=== PATIENT | female | born 1990 | race Hispanic/Latino ===

== ENCOUNTER 2017-10-30 13:53 | Observation (INO) | payer OTHER, MEDICARE ==
[~2017-10-30] VITALS: Ht 149.9 cm; Wt 58.1 kg
[~2017-10-30 13:53] MED LIST: INSU100I15 SQ; INSU100V12 SQ; LEVO112T7 PO
[2017-10-30 15:17] LABS: BASOPHILS % (AUTO) 0.3 % (0.0-5.0); LYMPHOCYTES % (AUTO) 2.6 % (21.0-51.0); MEAN CORPUSCULAR HEMOGLOBIN 31.5 pg (27.0-33.0); MEAN CORPUSCULAR HGB CONC 33.5 g/dL (32.0-36.0); MEAN CORPUSCULAR VOLUME 94.1 fL (79-99); MONOCYTES % (AUTO) 0.8 % (3.0-13.0); NEUTROPHILS % (AUTO) 96.3 % (40.0-77.0); PLATELET COUNT (AUTO) 331 K/uL (130-400); RED BLOOD CELL COUNT(AUTO) 4.67 MIL/uL (4.00-5.50); RED CELL DISTRIBUTION WIDTH 13.3 % (11.0-15.5); WHITE BLOOD COUNT (AUTO) 18.5 K/uL (4.8-10.8)
[2017-10-30 15:28] LABS: CREATININE 0.9 mg/dL (0.5-1.5); POTASSIUM 4.3 mmol/L (3.5-5.1)
[2017-10-30 15:33] LABS: BILIRUBIN,TOTAL 0.8 mg/dL (0.2-1.0); TOTAL PROTEIN, SERUM 8.4 g/dL (6.0-8.3)
[2017-10-30] MEDS ORDERED: CLINDAMYCIN 600 MG/D5% WATER 50 ML IV ONE (15:42)
[2017-10-30] MEDS ORDERED: SODIUM CHLORIDE 0.9% 1000ML 2,000 ML IV ONE (15:42)
[2017-10-30] MEDS ORDERED: INSULIN HUMULIN R 100 UNIT/ML 3ML ONE ×3 (15:43→21:51)
[2017-10-30 15:51] LABS: APPEARANCE,URINE Clear (CLEAR); BILIRUBIN,URINE Negative (NEGATIVE); COLOR,URINE Yellow (YELLOW); GLUCOSE, URINE (UA) >=1000 mg/dL (NEGATIVE); KETONES,URINE >=160 mg/dL (NEGATIVE); LEUKOCYTE ESTERASE ,URINE Negative (NEGATIVE); NITRATE,URINE Negative (NEGATIVE); OCCULT BLOOD,URINE Trace (NEGATIVE); PROTEIN,URINE Trace (NEGATIVE); UROBILINOGEN,URINE 0.2 mg/dL (0.2-1.0)
[2017-10-30 15:59] LABS: ABG OXYGEN SATURATION 23.1 % (95.0-99.0); BASE EXCESS,VENOUS BLOOD GAS -9.2 (-2.0-3.0); HCO3,VENOUS BLOOD GAS 17.5 (21.0-28.0); PCO2,VENOUS BLOOD GAS 41 (32-45)
[2017-10-30 15:59] LABS: AMPHET/METH SCREEN,URINE NEGATIVE (NEGATIVE); BARBITURATE SCREEN, URINE NEGATIVE (NEGATIVE); BENZODIAZEPINES SCREEN,URINE NEGATIVE (NEGATIVE); CANNABINOID SCREEN,URINE POSITIVE (NEGATIVE); COCAINE SCREEN,URINE NEGATIVE (NEGATIVE); OPIATE SCREEN,URINE NEGATIVE (NEGATIVE); PHENCYCLIDINE SCREEN,URINE NEGATIVE (NEGATIVE)
[2017-10-30 16:13] LABS: HCG,QUAL RESULT NEGATIVE (NEGATIVE)
[2017-10-30 16:20] LABS: WBC,URINE 0-1 /HPF (0-1)
[2017-10-30 16:21] LABS: BACTERIA,URINE Few /HPF (None Seen); SQUAMOUS EPITHELIAL CELL,UR Rare /LPF (0-2)
[2017-10-30 18:57] LABS: ABG OXYGEN SATURATION 43.5 % (95.0-99.0); HCO3,VENOUS BLOOD GAS 14.3 (21.0-28.0); PCO2,VENOUS BLOOD GAS 34 (32-45); PH,VENOUS BLOOD GAS 7.239 (7.350-7.450)
[2017-10-30 19:16] LABS: CREATININE 0.7 mg/dL (0.5-1.5); POTASSIUM 4.1 mmol/L (3.5-5.1)
[2017-10-30] MEDS ORDERED: VANCOMYCIN PROTOCOL PER PHARMACY IV SCH (20:15)
[2017-10-30] MEDS: SODIUM CHLORIDE 0.9% 1000ML 1,000 ML IV SCH (20:15)
[2017-10-30] MEDS ORDERED: DIPHENHYDRAMINE HCL 25 MG CAPSULE PO PRN (20:15)
[2017-10-30] MEDS ORDERED: COMPOUND IV REFRIGERATED 1 EACH IVSOLN MISC PRN (20:15)
[2017-10-30] MEDS ORDERED: DiphenhydrAMINE HCL 50 MG/ML VIAL IVP PRN (20:15)
[2017-10-30] MEDS ORDERED: ACETAMINOPHEN 325 MG TAB PO PRN ×2 (20:15)
[2017-10-30] MEDS ORDERED: DEXTROSE 50%-WATER 50 ML DISP.SYRIN IV PRN (20:15)
[2017-10-30] MEDS ORDERED: GLUCAGON 1MG KIT 1 MG ML IM PRN (20:15)
[2017-10-30] MEDS ORDERED: VANCOMYCIN 0.75 GM in N.S. 250 ML IV SCH (20:30)
[2017-10-30] MEDS: INSULIN R PO SS2 SQ SCH (21:00)
[2017-10-30] MEDS ORDERED: INSU100I24 SQ (23:14)
[2017-10-30] MEDS ORDERED: ALPR0.5T PO (23:14)
[2017-10-30 23:17] VITALS: BP 112/77
[2017-10-31 04:00] VITALS: BP 108/59
[2017-10-31] MEDS: VANCOMYCIN 500MG+NS 100ML 100 ML IV SCH ×3 (04:21→20:53)
[2017-10-31 05:42] LABS: MEAN CORPUSCULAR HEMOGLOBIN 32.1 pg (27.0-33.0); MEAN CORPUSCULAR HGB CONC 34.1 g/dL (32.0-36.0); MEAN CORPUSCULAR VOLUME 94.1 fL (79-99); PLATELET COUNT (AUTO) 319 K/uL (130-400); RED BLOOD CELL COUNT(AUTO) 4.04 MIL/uL (4.00-5.50); RED CELL DISTRIBUTION WIDTH 13.4 % (11.0-15.5)
[2017-10-31 06:08] LABS: BILIRUBIN,TOTAL 1.1 mg/dL (0.2-1.0); CREATININE 0.5 mg/dL (0.5-1.5); MAGNESIUM 1.6 mg/dL (1.80-2.40); POTASSIUM 3.6 mmol/L (3.5-5.1); TOTAL PROTEIN, SERUM 6.4 g/dL (6.0-8.3)
[2017-10-31] MEDS: INSULIN R PO SS2 SQ SCH ×4 (06:16→20:55)
[2017-10-31] MEDS ORDERED: FLU VACC QS2017-18 36MOS UP/PF 60 MCG/0.5 ML ML IM ONE (06:30)
[2017-10-31 08:00] VITALS: BP 104/72
[2017-10-31] MEDS ORDERED: ONDANSETRON HCL 4 MG/2 ML VIAL IVP ONE (08:13)
[2017-10-31] MEDS: ONDANSETRON HCL 4 MG/2 ML VIAL IVP PRN (08:15)
[2017-10-31] MEDS: ALPRAZOLAM 0.5 MG TABLET PO PRN ×2 (08:22→15:23)
[2017-10-31] MEDS ORDERED: MAGNESIUM 4GM PREMIX 100ML 100 ML IV SCH (08:30)
[2017-10-31] MEDS: SODIUM CHLORIDE 0.9% 1000ML 1,000 ML IV SCH (09:35)
[2017-10-31] MEDS ORDERED: DIATR MEGLU/DIATRIZOATE SODIUM 30 ML BOTTLE PO ONE (10:37)
[2017-10-31] MEDS ORDERED: POTASSIUM CHLORIDE 20MEQ/100ML 100 ML IV PRN (10:45)
[2017-10-31] MEDS ORDERED: POTASSIUM CHLORIDE 10% ELIXIR 20 MEQ/15 ML UDCUP PO PRN (10:45)
[2017-10-31] MEDS ORDERED: LIDOCAINE HCL-MPF 1% 2ML VIAL IVP PRN (10:45)
[2017-10-31] MEDS: LEVOFLOXACIN 500 MG/D5W 100 ML 100 ML IV SCH (10:50)
[2017-10-31] MEDS ORDERED: COMPOUND IV REFRIGERATED 1 EACH IVSOLN MISC PRN (11:30)
[2017-10-31 12:00] VITALS: BP 133/90
[2017-10-31] MEDS ORDERED: IOPAMIDOL-370 100 ML VIAL IV ONE (14:30)
[2017-10-31 15:49] VITALS: BP 108/80
[2017-10-31] MEDS: INSULIN LISPRO 100 UNIT/ML 3ML SQ SCH (17:00)
[2017-10-31 20:11] VITALS: BP 119/76
[2017-10-31] MEDS: MORPHINE SULFATE 2 MG/ML 1ML SYG IVP PRN (20:57)
[2017-10-31 23:39] VITALS: BP 108/71
[2017-11-01] MEDS: ALPRAZOLAM 0.5 MG TABLET PO PRN ×2 (01:14→08:49)
[2017-11-01 02:49] LABS: HEMATOCRIT 39.1 % (36-48); MEAN CORPUSCULAR HEMOGLOBIN 31.9 pg (27.0-33.0); MEAN CORPUSCULAR HGB CONC 34.2 g/dL (32.0-36.0); MEAN CORPUSCULAR VOLUME 93.4 fL (79-99); PLATELET COUNT (AUTO) 281 K/uL (130-400); RED BLOOD CELL COUNT(AUTO) 4.18 MIL/uL (4.00-5.50); RED CELL DISTRIBUTION WIDTH 13.4 % (11.0-15.5); WHITE BLOOD COUNT (AUTO) 13.6 K/uL (4.8-10.8)
[2017-11-01 02:58] LABS: CREATININE 0.6 mg/dL (0.5-1.5); POTASSIUM 3.4 mmol/L (3.5-5.1)
[2017-11-01 04:21] VITALS: BP 101/69
[2017-11-01] MEDS: VANCOMYCIN 500MG+NS 100ML 100 ML IV SCH (05:14)
[2017-11-01 07:00] VITALS: BP 103/64
[2017-11-01] MEDS: INSULIN LISPRO 100 UNIT/ML 3ML SQ SCH ×3 (07:20→16:22)
[2017-11-01] MEDS: INSULIN R PO SS2 SQ SCH ×3 (07:21→16:21)
[2017-11-01] MEDS ORDERED: LEVOTHYROXINE 112 MCG TABLET PO SCH (07:30)
[2017-11-01] MEDS: ONDANSETRON HCL 4 MG/2 ML VIAL IVP PRN (08:39)
[2017-11-01] MEDS: POTASSIUM CHLORIDE 20 MEQ ERTAB PO PRN ×2 (08:51→10:34)
[2017-11-01] MEDS: SODIUM CHLORIDE 0.9% 1000ML 1,000 ML IV SCH ×2 (08:52→12:47)
[2017-11-01] MEDS ORDERED: VANCOMYCIN 1GM+NS 250ML IV SCH (09:00)
[2017-11-01] MEDS: LEVOFLOXACIN 500 MG/D5W 100 ML 100 ML IV SCH (10:56)
[2017-11-01 11:00] VITALS: BP 95/57
[2017-11-01] MEDS ORDERED: Insulin Degludec (Tresiba Flextouch U-100) PO SCH (12:00)
[2017-11-01] MEDS: MORPHINE SULFATE 2 MG/ML 1ML SYG IVP PRN (13:01)
[2017-11-01 16:00] VITALS: BP 107/57
== END 2017-11-01 17:45 | disposition home or self-care (01) ==
LOC: EDH 13:53 → EDHIP 19:40 → 3CH 22:25
PROVIDERS: ADMIT Internal Medicine Infectious Disease; ATTEND Internal Medicine Infectious Disease
DX: N76.4 Abscess of vulva (principal); D72.829 Elevated white blood cell count, unspecified; E11.65 Type 2 diabetes mellitus with hyperglycemia; E87.2 Acidosis; E83.42 Hypomagnesemia; E87.6 Hypokalemia; E03.9 Hypothyroidism, unspecified; F32.9 Major depressive disorder, single episode, unspecified; F41.9 Anxiety disorder, unspecified; Z83.3 Family history of diabetes mellitus; Z23 Encounter for immunization
CPT/HCPCS: 36415 ×3; 36600 ×2; 74178; 80048 ×2; 80053 ×2; 80202; 80305; 81001; 81025; 82009; 82803 ×2; 82947; 82948 ×12; 83735 ×2; 85025; 85027 ×2; 87040 ×2; 90471; 96365; 96366 ×2; 96367; 96368; 96375 ×2; 96376 ×2; 99285; A4510; G0378 ×46; J1815 ×5; J1956 ×2; J2405 ×2; J3370 ×4; J3475; J3490; J7030 ×4; Q2038; Q9963; Q9967

== ENCOUNTER 2018-07-31 18:53 | Emergency (ER) | payer OTHER, MEDICARE ==
[~2018-07-31 18:53] MED LIST changes: +ALPR0.5T PO; +INSU100I24 SQ
[2018-07-31] MEDS ORDERED: ONDANSETRON HCL 4 MG/2 ML VIAL ONE (19:33)
[2018-07-31 20:00] LABS: BASOPHILS % (AUTO) 0.3 % (0.0-5.0); EOSINOPHILS % (AUTO) 0.4 % (0.0-8.0); HEMATOCRIT 44.5 % (36-48); LYMPHOCYTES % (AUTO) 9.1 % (21.0-51.0); MEAN CORPUSCULAR HEMOGLOBIN 32.7 pg (27.0-33.0); MEAN CORPUSCULAR HGB CONC 34.6 g/dL (32.0-36.0); MEAN CORPUSCULAR VOLUME 94.4 fL (79-99); MONOCYTES % (AUTO) 3.2 % (3.0-13.0); PLATELET COUNT (AUTO) 336 K/uL (130-400); RED BLOOD CELL COUNT(AUTO) 4.71 MIL/uL (4.00-5.50); RED CELL DISTRIBUTION WIDTH 12.5 % (11.0-15.5); WHITE BLOOD COUNT (AUTO) 14.3 K/uL (4.8-10.8)
[2018-07-31 20:02] LABS: APPEARANCE,URINE Cloudy (CLEAR); BILIRUBIN,URINE Negative (NEGATIVE); COLOR,URINE Yellow (YELLOW); GLUCOSE, URINE (UA) >=1000 mg/dL (NEGATIVE); KETONES,URINE 15 mg/dL (NEGATIVE); LEUKOCYTE ESTERASE ,URINE Negative (NEGATIVE); NITRATE,URINE Negative (NEGATIVE); OCCULT BLOOD,URINE Small (NEGATIVE); PH,URINE 5.5 (5.0-8.0); PROTEIN,URINE POS 2+ (NEGATIVE)
[2018-07-31 20:09] LABS: AMPHET/METH SCREEN,URINE NEGATIVE (NEGATIVE); BARBITURATE SCREEN, URINE NEGATIVE (NEGATIVE); BENZODIAZEPINES SCREEN,URINE POSITIVE (NEGATIVE); CANNABINOID SCREEN,URINE POSITIVE (NEGATIVE); COCAINE SCREEN,URINE NEGATIVE (NEGATIVE); OPIATE SCREEN,URINE NEGATIVE (NEGATIVE); PHENCYCLIDINE SCREEN,URINE NEGATIVE (NEGATIVE)
[2018-07-31 20:16] LABS: CREATININE 0.7 mg/dL (0.5-1.5); POTASSIUM 4.6 mmol/L (3.5-5.1)
[2018-07-31 20:18] LABS: ACETONE,BLOOD NEGATIVE (NEGATIVE)
[2018-07-31 20:28] LABS: BACTERIA,URINE Few /HPF (None Seen); RBC,URINE 0-1 /HPF (0-1); WBC,URINE None Seen /HPF (0-1)
[2018-07-31 20:29] LABS: ALANINE AMINOTRANSFERASE 15 U/L (12-78); ASPARTATE AMINOTRANSFERASE 26 U/L (10-37); BILIRUBIN,DIRECT 0.1 mg/dL (0.0-0.3); BILIRUBIN,TOTAL 0.9 mg/dL (0.2-1.0); HCG,QUANTITATIVE 0 mIU/mL (0-5); SQUAMOUS EPITHELIAL CELL,UR 0-2 /HPF (0-2); TOTAL PROTEIN, SERUM 8.8 g/dL (6.0-8.3)
[2018-07-31] MEDS ORDERED: INSULIN HUMULIN R 100 UNIT/ML 3ML ONE (21:05)
== END 2018-07-31 21:29 | disposition home or self-care (01) ==
LOC: EDH 18:53
DX: E11.65 Type 2 diabetes mellitus with hyperglycemia (principal); R11.2 Nausea with vomiting, unspecified; E07.9 Disorder of thyroid, unspecified; Z79.4 Long term (current) use of insulin; Z72.0 Tobacco use
CPT/HCPCS: 36415; 80048; 80076; 80305; 81001; 82009; 82948; 83690; 84702; 85025; 96361; 96374; 96375; 99284; J1815; J2405

== ENCOUNTER 2018-10-11 16:06 | Emergency (ER) | payer OTHER, MEDICARE | END 2018-10-11 16:28 | disposition home or self-care (01) | LOC: EDH 16:06 | DX: S92.424A Nondisplaced fracture of distal phalanx of right great toe, initial encounter for closed fracture (principal); E11.9 Type 2 diabetes mellitus without complications; F32.9 Major depressive disorder, single episode, unspecified; E07.9 Disorder of thyroid, unspecified; F41.9 Anxiety disorder, unspecified; Z88.0 Allergy status to penicillin; Z79.4 Long term (current) use of insulin; X58.XXXA Exposure to other specified factors, initial encounter; Y93.89 Activity, other specified; Y92.89 Other specified places as the place of occurrence of the external cause; Y99.8 Other external cause status | CPT/HCPCS: 73660 ==

== ENCOUNTER 2019-08-10 15:01 | Emergency (ER) | payer OTHER, MEDICARE | END 2019-08-10 15:50 | disposition home or self-care (01) | LOC: EDH 15:01 | DX: N63.0 Unspecified lump in unspecified breast (principal) | CPT/HCPCS: 99281 ==

== ENCOUNTER 2019-08-29 09:51 | Inpatient (IN) | payer OTHER, MEDICARE ==
[~2019-08-29] VITALS: Ht 149.9 cm; Wt 60.8 kg
[2019-08-29] MEDS ORDERED: CLINDAMYCIN 600 MG/D5% WATER 50 ML IV ONE (10:50)
[2019-08-29 10:51] LABS: BASOPHILS % (AUTO) 0.3 % (0.0-5.0); EOSINOPHILS % (AUTO) 0.9 % (0.0-8.0); HEMATOCRIT 43.3 % (36-48); LYMPHOCYTES % (AUTO) 7.6 % (21.0-51.0); MEAN CORPUSCULAR HEMOGLOBIN 31.6 pg (27.0-33.0); MEAN CORPUSCULAR HGB CONC 34.3 g/dL (32.0-36.0); MEAN CORPUSCULAR VOLUME 92.1 fL (79-99); MONOCYTES % (AUTO) 4.4 % (3.0-13.0); NEUTROPHILS % (AUTO) 86.8 % (40.0-77.0); PLATELET COUNT (AUTO) 366 K/uL (130-400); RED CELL DISTRIBUTION WIDTH 12.4 % (11.0-15.5)
[2019-08-29 11:04] LABS: APPEARANCE,URINE Clear (CLEAR); BILIRUBIN,URINE Negative (NEGATIVE); COLOR,URINE Yellow (YELLOW); GLUCOSE, URINE (UA) 500 mg/dL (NEGATIVE); KETONES,URINE >=80 mg/dL (NEGATIVE); LEUKOCYTE ESTERASE ,URINE Negative (NEGATIVE); NITRATE,URINE Negative (NEGATIVE); OCCULT BLOOD,URINE Large (NEGATIVE); PH,URINE 5.5 (5.0-8.0); PROTEIN,URINE POS 1+ mg/dL (NEGATIVE)
[2019-08-29 11:04] LABS: CREATININE 0.7 mg/dL (0.5-1.5); POTASSIUM 4.3 mmol/L (3.5-5.1)
[2019-08-29 11:10] LABS: HCG,QUAL RESULT NEGATIVE (NEGATIVE)
[2019-08-29 11:26] LABS: BACTERIA,URINE Few /HPF (None Seen); WBC,URINE 0-1 /HPF (0-1)
[2019-08-29] MEDS ORDERED: ONDANSETRON HCL 4 MG/2 ML VIAL ONE (12:27)
[2019-08-29] MEDS ORDERED: MORPHINE SULFATE 4 MG/1ML SYG ONE (12:28)
[2019-08-29] MEDS ORDERED: KETOROLAC TROMETHAMINE 30MG/ML ONE (12:28)
[2019-08-29] MEDS ORDERED: SODIUM CHLORIDE 0.9% 1000ML 1,000 ML IV ONE (12:28)
[2019-08-29 15:00] VITALS: BP 143/81
[2019-08-29] MEDS ORDERED: MORPHINE SULFATE 2 MG/ML 1ML SYG IM PRN (15:45)
[2019-08-29] MEDS ORDERED: ACETAMINOPHEN-CODEINE 300/30MG TAB PO PRN ×2 (15:45)
[2019-08-29] MEDS ORDERED: VANCOMYCIN PROTOCOL PER PHARMACY IV SCH (15:45)
[2019-08-29] MEDS: VANCOMYCIN 1GM+NS 250ML 250 ML IV SCH (17:07)
[2019-08-29] MEDS ORDERED: DEXTROSE 50%-WATER 50 ML DISP.SYRIN IV PRN (18:00)
[2019-08-29] MEDS ORDERED: GLUCAGON 1MG KIT 1 MG ML IM PRN (18:00)
[2019-08-29 19:00] VITALS: BP 140/79
[2019-08-29] MEDS ORDERED: INSULIN HUMULIN R 100 UNIT/ML 3ML SQ SCH (21:00)
[2019-08-29] MEDS ORDERED: CHOL500050 PO ×2 (21:51)
--- NOTE | 2019-08-29 21:59 | NUR ---
NOTE CONTACTED DR. GREENBERG REGARDING PATIENT'S CONCERNS FOR INSULIN AND TO ASK ABOUT RESTARTING HER OWN MEDICATION REGIMEN. ALSO CLARIFIED ROUTE FOR MORPHINE AND UPDATED ORDER. RECEIVED ALSO ORDERS FOR CONSULT HOSPITALIST TO SEE ABOUT DIABETES/MEDICAL MANAGEMENT. PAGED HOSPITALIST ONCALL. UPDATED PATIENT.
--- NOTE | 2019-08-29 22:24 | NUR ---
NOTE NOTIFIED Benson ALEXANDER RESIDENT CAREGIVER AND CAME TO UNIT TO SEE PATIENT AND REVIEW CHART.
[2019-08-29] MEDS ORDERED: MORPHINE SULFATE 2 MG/ML 1ML SYG IV PRN (22:45)
--- NOTE | 2019-08-29 22:46 | NUR ---
NOTE Benson ALEXANDER SHIP CAPTAIN AFTER SEEING PATIENT. RESUMED HOME MEDICATIONS AND SAID PATIENT CAN USE HER OWN INSULIN IF THE PHARMACY DOES NOT HAVE IT AVAILABLE. UPDATED PATIENT OF NEW ORDERS. SAYS SHE WILL USE HER OWN TONIGHT.
[2019-08-30] VITALS (25 sets, daily range): BP systolic 92–131; BP diastolic 51–87
[2019-08-30] MEDS: SODIUM CHLORIDE 0.9% 1000ML 1,000 ML IV SCH ×3 (03:11→23:40)
[2019-08-30 05:18] LABS: BASOPHILS % (AUTO) 0.8 % (0.0-5.0); EOSINOPHILS % (AUTO) 2.7 % (0.0-8.0); HEMATOCRIT 37.3 % (36-48); LYMPHOCYTES % (AUTO) 29.3 % (21.0-51.0); MEAN CORPUSCULAR HEMOGLOBIN 31.8 pg (27.0-33.0); MEAN CORPUSCULAR HGB CONC 34.8 g/dL (32.0-36.0); MEAN CORPUSCULAR VOLUME 91.2 fL (79-99); MONOCYTES % (AUTO) 7.8 % (3.0-13.0); NEUTROPHILS % (AUTO) 59.4 % (40.0-77.0); PLATELET COUNT (AUTO) 320 K/uL (130-400); RED BLOOD CELL COUNT(AUTO) 4.09 MIL/uL (4.00-5.50); RED CELL DISTRIBUTION WIDTH 12.6 % (11.0-15.5); WHITE BLOOD COUNT (AUTO) 7.6 K/uL (4.8-10.8)
[2019-08-30 05:33] LABS: ALBUMIN 2.9 g/dL (3.5-5.0); BILIRUBIN,TOTAL 0.6 mg/dL (0.2-1.0); CREATININE 0.6 mg/dL (0.5-1.5); INR 0.93 (0.85-1.15); PARTIAL THROMBOPLASTIN TIME 25.8 SEC (26.3-35.5); POTASSIUM 4.2 mmol/L (3.5-5.1); PROTHROMBIN TIME 9.8 SEC (9.6-11.6); TOTAL PROTEIN, SERUM 6.5 g/dL (6.0-8.3)
[2019-08-30 05:34] LABS: HEMOGLOBIN A1C 11.1 % (4.0-6.0)
--- NOTE | 2019-08-30 06:30 | NUR ---
NOTE PATIENT SAYS SHE WILL NOT USE INSULIN SINCE SHE IS FASTING NOW. HER GLUCOSE WAS 244 IN LAB RESULTS.
[2019-08-30] MEDS ORDERED: LEVOTHYROXINE 112 MCG TABLET PO SCH (07:30)
[2019-08-30] MEDS: INSULIN LISPRO 100 UNIT/ML 3ML SQ SCH ×4 (07:30→21:36)
[2019-08-30] MEDS: LEVOTHYROXINE 150 MCG TABLET PO SCH (07:30)
[2019-08-30] MEDS ORDERED: ONDANSETRON HCL 4 MG/2 ML VIAL IVP PRN (08:30)
[2019-08-30] MEDS ORDERED: KETOROLAC TROMETHAMINE 15MG/ML IV PRN (09:00)
--- NOTE | 2019-08-30 09:00 | NUR ---
LEFT BREAST ABSCESS Addendum: 08/30/19 at 1356 by SUZY MAN RN RN Amended: Links added.
[2019-08-30] MEDS: VANCOMYCIN 1GM+NS 250ML 250 ML IV SCH ×2 (09:03→21:26)
--- NOTE | 2019-08-30 09:30 | NUR ---
INITIAL MET W PT AND SPOUSE , SUZANNE WHO WILL PROVIDE TRANSPORT PT IS INDP OF ADLS, NO DME, DRIVES, HAS HAD DMI SINCE SHE WAS AOBUT 11, AND HAS A LARGE REDDEDN ABCESS TO BREAST WHICH HAS NOT BEEN RESPONSIVE TO PO ABX. DCP IS HOME, STATES WILL DO WHATEVER DRESSING CHANGES NEED TO BE DONE. SPOUSE VERBALIZED AGREEMENT Addendum: 08/31/19 at 1832 by STEPHON DELVALLE RN CM Amended: Links added.
[2019-08-30] MEDS: ALPRAZOLAM 0.5 MG TABLET PO PRN ×2 (10:37→23:39)
--- NOTE | 2019-08-30 12:03 | NUR ---
PATIENT TAKING OFF UNIT VIA BED TO OR HOLDING FOR I&D OF LEFT BREAST ABSCESS
[2019-08-30] MEDS ORDERED: MEPERIDINE-PF 25 MG/ML SYG ONE ×2 (12:18→14:18)
[2019-08-30] MEDS ORDERED: MIDAZOLAM HCL 1 MG/ML 2ML VIAL ONE ×2 (13:17→14:04)
[2019-08-30] MEDS ORDERED: LIDOCAINE PF 2% 5ML ABBOJECT ONE (13:17)
[2019-08-30] MEDS ORDERED: DEXAMETHASONE SOD PHOSPHATE 10MG/ML 1ML VIAL ONE (13:17)
[2019-08-30] MEDS ORDERED: FENTANYL CITRATE PF 50 MCG/1 ML 2ML VIAL ONE (13:18)
[2019-08-30] MEDS ORDERED: PROPOFOL 10 MG/ML 20ML VIAL IV ONE ×2 (13:18→13:26)
[2019-08-30] MEDS ORDERED: ONDANSETRON HCL 4 MG/2 ML VIAL ONE (13:18)
[2019-08-30] MEDS ORDERED: MORPHINE SULFATE 4 MG/1ML SYG ONE (13:57)
[2019-08-30] MEDS ORDERED: KETOROLAC TROMETHAMINE 30MG/ML ONE (14:45)
--- NOTE | 2019-08-30 15:00 | NUR ---
S/P I&D WITH PACKING OF LEFT BREAST, DRESSING DRY AND INTACT VS B/P 108/67 P 81 R 16 T 97.6 MEDICATED 3 TIMES WHILE IN RECOVER LAST MEDICATION TORADOL 30 MG AT 1448, PATIENT O2 SATS 97 % ON ROOM AIR , DENIES PAIN AT THIS TIME, CONTINUE TO MONITOR.
[2019-08-30] MEDS: MORPHINE SULFATE 2 MG/ML 1ML SYG IV PRN (21:27)
[2019-08-30] MEDS ORDERED: INSULIN GLARGINE 100 UNITS/ML 10 ML VIAL SQ SCH (22:00)
[2019-08-31] VITALS (21 sets, daily range): BP systolic 114–133; BP diastolic 64–86
[2019-08-31] MEDS: MORPHINE SULFATE 2 MG/ML 1ML SYG IV PRN ×2 (04:13→09:28)
[2019-08-31] MEDS: INSULIN LISPRO 100 UNIT/ML 3ML SQ SCH ×3 (06:18→16:30)
[2019-08-31] MEDS: LEVOTHYROXINE 150 MCG TABLET PO SCH (06:31)
--- NOTE | 2019-08-31 07:30 | NUR ---
note AAOX3. DENIES PAIN AT THIS TIME. NO DISTRESS OR SOB. BBS CLEAR. BOWEL SOUNDS PRESENT VOIDS NO PROBLEM. SHE IS NPO FOR SECOND I&D TO LEFT BREAST ABSCESS TO BE PERFORMED BY DR GREENBERG. AT HER SIDE. INSTRUCTED HER NOT TO EAT BREAKFAST THAT WAS DELIVERED TO HER ROOM FOR SHE IS NPO OF NOW.
[2019-08-31] MEDS: SODIUM CHLORIDE 0.9% 1000ML 1,000 ML IV SCH (07:46)
[2019-08-31] MEDS: VANCOMYCIN 1GM+NS 250ML 250 ML IV SCH (09:00)
[2019-08-31] MEDS ORDERED: VANCOMYCIN 1.75 GM in SODIUM CHLORIDE 0.9% 250 ML IV SCH (10:30)
[2019-08-31] MEDS ORDERED: VANCOMYCIN HCL 1 GM VIAL ONE (12:23)
[2019-08-31] MEDS ORDERED: CEFAZOLIN SODIUM 1 GM VIAL ONE (12:23)
--- NOTE | 2019-08-31 12:25 | NUR ---
NOTE TRANSFERRED TO SURGERY AT THIS TIME. STABLE UPON LEAVING.
[2019-08-31] MEDS ORDERED: MIDAZOLAM HCL 1 MG/ML 2ML VIAL ONE (12:46)
[2019-08-31] MEDS ORDERED: LIDOCAINE PF 2% 5ML ABBOJECT ONE (12:46)
[2019-08-31] MEDS ORDERED: PROPOFOL 10 MG/ML 20ML VIAL IV ONE (12:46)
[2019-08-31] MEDS ORDERED: FENTANYL CITRATE PF 50 MCG/1 ML 2ML VIAL ONE ×2 (12:46→13:05)
[2019-08-31] MEDS ORDERED: DEXAMETHASONE SOD PHOSPHATE 10MG/ML 1ML VIAL ONE (13:00)
[2019-08-31] MEDS ORDERED: ONDANSETRON HCL 4 MG/2 ML VIAL ONE (13:01)
[2019-08-31] MEDS ORDERED: KETOROLAC TROMETHAMINE 30MG/ML ONE (13:05)
[2019-08-31] MEDS ORDERED: MEPERIDINE-PF 25 MG/ML SYG ONE ×2 (13:36→13:46)
[2019-08-31] MEDS: ALPRAZOLAM 0.5 MG TABLET PO PRN (17:01)
--- NOTE | 2019-08-31 18:15 | NUR ---
NOTE DISCHARGE INSTRUCTIONS GIVEN TO PATIENT AND WAS AT HIS SIDE. BOTH UNDERSTOOD WHAT WAS DISCUSSED. DRESSING TO LEFT BREAST WAS REINFORCED. PICTURE TAKEN FOR CHART. WAS ASSISTED BY ELLIOT GONZALEZ. SPOKE TO DR GREENBERG EARLIER AND HE GAVE ME INSTRUCTIONS TO RELAY TO PATIENT NOT TO GET DRESSING WET OR DIRTY AND REINFORCE IT PRN, LEAVE PACKING ALONE.
[2019-09-05] MEDS ORDERED: ERGOCALCIFEROL (VITAMIN D2) 50,000 UNIT CAPSULE PO SCH (09:00)
== END 2019-08-31 18:55 | disposition home or self-care (01) | DRG 585 ==
LOC: EDH 09:51 → EDHIP 12:27 → 4CH 15:00
PROVIDERS: ADMIT Surgery Plastic and Reconstructive Surgery; ATTEND Surgery Plastic and Reconstructive Surgery
PROC: 0H9U0ZZ Drainage of Left Breast, Open Approach (ICD-10-PCS; principal; 2019-08-30 13:15)
PROC: 0HBU0ZZ Excision of Left Breast, Open Approach (ICD-10-PCS; 2019-08-31)
DX: N61.1 Abscess of the breast and nipple (principal); E10.65 Type 1 diabetes mellitus with hyperglycemia; D72.829 Elevated white blood cell count, unspecified; E03.9 Hypothyroidism, unspecified; F32.9 Major depressive disorder, single episode, unspecified; G89.29 Other chronic pain; N64.53 Retraction of nipple; Z79.4 Long term (current) use of insulin; F41.9 Anxiety disorder, unspecified; Z88.0 Allergy status to penicillin; S21.002A Unspecified open wound of left breast, initial encounter; X58.XXXA Exposure to other specified factors, initial encounter; Y93.89 Activity, other specified; Y92.89 Other specified places as the place of occurrence of the external cause; Y99.8 Other external cause status
CPT/HCPCS: 36415; 76641; 80048; 80053; 80202; 81001; 81025; 82948; 83036; 85025; 85610; 85730; 96374; A4606; G0378; J0690; J1100; J1885; J2001; J2175; J2250; J2270; J2405; J2704; J3010; J3370; J3490; J7030

== ENCOUNTER 2019-09-01 14:25 | Inpatient (IN) | payer OTHER, MEDICARE ==
[~2019-09-01] VITALS: Ht 149.9 cm; Wt 60.8 kg
[~2019-09-01 14:25] MED LIST changes: +CHOL500050 PO
[2019-09-01] MEDS ORDERED: ONDANSETRON HCL 4 MG/2 ML VIAL ONE (14:58)
[2019-09-01] MEDS ORDERED: MORPHINE SULFATE 4 MG/1ML SYG ONE (14:58)
[2019-09-01] MEDS ORDERED: SODIUM CHLORIDE 0.9% 1000ML 1,000 ML IV ONE (14:59)
[2019-09-01 15:02] LABS: BASOPHILS % (AUTO) 0.5 % (0.0-5.0); LYMPHOCYTES % (AUTO) 8.4 % (21.0-51.0); MEAN CORPUSCULAR HEMOGLOBIN 31.1 pg (27.0-33.0); MEAN CORPUSCULAR HGB CONC 33.3 g/dL (32.0-36.0); MEAN CORPUSCULAR VOLUME 93.6 fL (79-99); NEUTROPHILS % (AUTO) 85.1 % (40.0-77.0); PLATELET COUNT (AUTO) 517 K/uL (130-400); RED BLOOD CELL COUNT(AUTO) 4.81 MIL/uL (4.00-5.50); RED CELL DISTRIBUTION WIDTH 12.6 % (11.0-15.5)
[2019-09-01 15:16] LABS: INR 0.95 (0.85-1.15); PARTIAL THROMBOPLASTIN TIME 25.3 SEC (26.3-35.5)
[2019-09-01 15:30] LABS: ALANINE AMINOTRANSFERASE 15 U/L (12-78); ASPARTATE AMINOTRANSFERASE 13 U/L (10-37); BILIRUBIN,TOTAL 0.6 mg/dL (0.2-1.0); CHLORIDE 96 mmol/L (101-111); CREATINE KINASE, TOTAL 55 U/L (21-232); CREATININE 1.2 mg/dL (0.5-1.5); GLOMERULAR FILTR. RATE CALC 56 mL/min (>60); MYOGLOBIN 19 ng/mL (10-92); SODIUM SERUM 131 mmol/L (136-145); TOTAL PROTEIN, SERUM 8.7 g/dL (6.0-8.3); TROPONIN I < 0.04 ng/mL (0.00-0.06); UREA NITROGEN, BLOOD 21 mg/dL (7-18)
[2019-09-01 15:42] LABS: CARBON DIOXIDE 8 mmol/L (21-32)
[2019-09-01 15:43] LABS: GLUCOSE,RANDOM 460 mg/dL (70-105)
[2019-09-01 16:31] LABS: APPEARANCE,URINE SL CLOUDY (CLEAR); BILIRUBIN,URINE NEGATIVE (NEGATIVE); COLOR,URINE RED (YELLOW); GLUCOSE, URINE (UA) >=1000 mg/dL (NEGATIVE); KETONES,URINE >=80 mg/dL (NEGATIVE); LEUKOCYTE ESTERASE ,URINE NEGATIVE (NEGATIVE); NITRATE,URINE NEGATIVE (NEGATIVE); OCCULT BLOOD,URINE LARGE (NEGATIVE); PH,URINE 5.5 (5.0-8.0); PROTEIN,URINE TRACE mg/dL (NEGATIVE); UROBILINOGEN,URINE 0.2 mg/dL (0.2-1.0)
[2019-09-01 16:31] LABS: ABG BASE EXCESS -22.4 mmol/L (-2.0-3.0); ABG HCO3 4.9 mmol/L (21.0-28.0); ABG OXYGEN SATURATION 97.4 % (95.0-99.0); ABG PCO2 < 17 mmHg (32-45)
[2019-09-01] MEDS ORDERED: SODIUM CHLORIDE 0.9% 100 ML IV ONE (16:37)
[2019-09-01] MEDS ORDERED: INSULIN HUMULIN R 100 UNIT/ML 3ML ONE (16:38)
[2019-09-01 16:47] LABS: BACTERIA,URINE Few /HPF (None Seen); MUCUS,URINE Moderate LPF (None Seen); RBC,URINE 26-50 /HPF (0-1)
[2019-09-01 18:35] LABS: MAGNESIUM 1.7 mg/dL (1.80-2.40); PHOSPHORUS 5.6 mg/dL (2.5-4.9)
[2019-09-01] MEDS ORDERED: CLINDAMYCIN 600 MG/D5% WATER 50 ML IV ONE (18:40)
[2019-09-01] MEDS ORDERED: LACTATED RINGERS 1000ML 1,000 ML IV ONE (18:40)
[2019-09-01 18:48] LABS: HEMOGLOBIN A1C 10.1 % (4.0-6.0)
[2019-09-01] MEDS ORDERED: INSULIN IV SS1 SQ PRN ×2 (19:00)
[2019-09-01] MEDS ORDERED: GLUCAGON 1MG KIT 1 MG ML IM PRN (19:00)
[2019-09-01] MEDS ORDERED: DEXTROSE 50%-WATER 50 ML DISP.SYRIN IV PRN (19:00)
[2019-09-01] MEDS ORDERED: POTASSIUM CHLORIDE 20MEQ/100ML 100 ML IV PRN (19:15)
[2019-09-01] MEDS ORDERED: LIDOCAINE HCL-MPF 1% 2ML VIAL IJ PRN (19:15)
[2019-09-01] MEDS ORDERED: MAGNESIUM SULFATE 1 GM in SODIUM CHLORIDE 0.9% 50 ML IV PRN (19:15)
[2019-09-01] MEDS ORDERED: POTASSIUM CHLORIDE 10MEQ/100ML 100 ML IV PRN (19:45)
[2019-09-01] MEDS ORDERED: ACETAMINOPHEN 325 MG TAB PO PRN (20:15)
[2019-09-01] MEDS ORDERED: NS-20 MEQ KCL 1000ML 1,000 ML IV SCH (21:15)
[2019-09-01] MEDS ORDERED: D5W-1/2 NS/20MEQ KCL 1,000 ML IV SCH (21:15)
[2019-09-01 22:58] LABS: CREATININE 1.1 mg/dL (0.5-1.5); POTASSIUM 4.2 mmol/L (3.5-5.1)
[2019-09-02] MEDS ORDERED: ENOXAPARIN SODIUM 40 MG/0.4 ML SYRINGE SQ ONE (02:04)
[2019-09-02 05:37] LABS: CREATININE 0.9 mg/dL (0.5-1.5); POTASSIUM 4.2 mmol/L (3.5-5.1)
[2019-09-02] MEDS: FAMOTIDINE/PF 20 MG/2 ML VIAL IV SCH (09:00)
[2019-09-02] MEDS: ENOXAPARIN SODIUM 40 MG/0.4 ML SYRINGE SQ SCH (09:00)
[2019-09-02] MEDS ORDERED: ACETAMINOPHEN 325 MG TAB ONE (09:03)
[2019-09-02] MEDS ORDERED: VANCOMYCIN 1GM+NS 250ML 250 ML IV ONE (09:18)
[2019-09-02] MEDS ORDERED: DEXTROSE 5 %-0.45 % NACL 1,000 ML IV ONE ×2 (09:18→21:28)
[2019-09-02 09:36] LABS: ABG BASE EXCESS -12.3 mmol/L (-2.0-3.0); ABG HCO3 12.2 mmol/L (21.0-28.0); ABG OXYGEN SATURATION 97.3 % (95.0-99.0); ABG PCO2 26 mmHg (32-45)
[2019-09-02] MEDS ORDERED: LORAZEPAM 2 MG/ML 1 ML VIAL IVP PRN (11:00)
[2019-09-02] MEDS ORDERED: POTASSIUM CHLORIDE 20MEQ/100ML 100 ML IV PRN (11:00)
[2019-09-02] MEDS ORDERED: LIDOCAINE HCL-MPF 1% 2ML VIAL IJ PRN (11:00)
[2019-09-02] MEDS ORDERED: POTASSIUM CHLORIDE 10% ELIXIR 20 MEQ/15 ML UDCUP PO PRN (11:00)
[2019-09-02] MEDS ORDERED: MORPHINE SULFATE 2 MG/ML 1ML SYG ONE ×3 (11:05→21:17)
[2019-09-02 11:59] LABS: CREATININE 0.9 mg/dL (0.5-1.5); POTASSIUM 3.7 mmol/L (3.5-5.1)
[2019-09-02] MEDS ORDERED: LEVOFLOXACIN 500 MG/D5W 100 ML 100 ML ONE (12:39)
[2019-09-02] MEDS ORDERED: SODIUM CHLORIDE 0.9% 1000ML 1,000 ML IV ONE (14:03)
[2019-09-02 14:18] LABS: ABG BASE EXCESS -10.5 mmol/L (-2.0-3.0); ABG HCO3 14.2 mmol/L (21.0-28.0); ABG OXYGEN SATURATION 96.8 % (95.0-99.0); ABG PCO2 29 mmHg (32-45)
[2019-09-02 14:40] LABS: CREATININE 0.8 mg/dL (0.5-1.5); POTASSIUM 3.8 mmol/L (3.5-5.1)
[2019-09-02 17:56] LABS: AMPHET/METH SCREEN,URINE NEGATIVE (NEGATIVE); BARBITURATE SCREEN, URINE NEGATIVE (NEGATIVE); BENZODIAZEPINES SCREEN,URINE POSITIVE (NEGATIVE); CANNABINOID SCREEN,URINE POSITIVE (NEGATIVE); COCAINE SCREEN,URINE NEGATIVE (NEGATIVE); OPIATE SCREEN,URINE POSITIVE (NEGATIVE); PHENCYCLIDINE SCREEN,URINE NEGATIVE (NEGATIVE)
[2019-09-02 18:53] LABS: ABG HCO3 13.2 mmol/L (21.0-28.0); ABG OXYGEN SATURATION 96.6 % (95.0-99.0); ABG PCO2 29 mmHg (32-45)
[2019-09-02 19:03] LABS: CREATININE 0.7 mg/dL (0.5-1.5); POTASSIUM 3.7 mmol/L (3.5-5.1)
[2019-09-02] MEDS ORDERED: SODIUM BICARB 8.4% 50ML SYRING 150 MEQ in DEXTROSE 5%-WATER 1,000 ML IVP SCH (20:45)
[2019-09-02] MEDS ORDERED: SODIUM BICARB 50MEQ 50ML VIAL ONE (20:45)
[2019-09-02] MEDS ORDERED: LORAZEPAM 2 MG/ML 1 ML VIAL ONE (21:16)
[2019-09-02] MEDS ORDERED: ONDANSETRON HCL 4 MG/2 ML VIAL ONE (21:17)
[2019-09-02 22:40] LABS: ABG HCO3 17.4 mmol/L (21.0-28.0); ABG OXYGEN SATURATION 97.6 % (95.0-99.0); ABG PCO2 27 mmHg (32-45)
[2019-09-02 23:27] LABS: CREATININE 0.7 mg/dL (0.5-1.5)
[2019-09-03] VITALS (12 sets, daily range): BP systolic 113–134; BP diastolic 49–91
[2019-09-03] MEDS ORDERED: LIDOCAINE HCL 1% 20 ML VIAL ONE ×2 (00:19→03:30)
[2019-09-03] MEDS ORDERED: POTASSIUM CHLORIDE 20MEQ/100ML 100 ML IV ONE ×2 (00:19→03:29)
[2019-09-03] MEDS ORDERED: MAGNESIUM 2GM PREMIX 50ML 50 ML IV ONE (00:19)
[2019-09-03] MEDS ORDERED: MORPHINE SULFATE 2 MG/ML 1ML SYG ONE ×2 (01:46→06:00)
[2019-09-03 02:11] LABS: ABG BASE EXCESS -0.3 mmol/L (-2.0-3.0); ABG HCO3 23.5 mmol/L (21.0-28.0); ABG OXYGEN SATURATION 95.2 % (95.0-99.0); ABG PCO2 36 mmHg (32-45)
[2019-09-03] MEDS ORDERED: LORAZEPAM 2 MG/ML 1 ML VIAL ONE (03:25)
[2019-09-03] MEDS ORDERED: DEXTROSE 5 %-0.45 % NACL 1,000 ML IV ONE (03:42)
[2019-09-03] MEDS ORDERED: ONDANSETRON HCL 4 MG/2 ML VIAL ONE (05:59)
[2019-09-03 06:33] LABS: ABG BASE EXCESS 0.6 mmol/L (-2.0-3.0); ABG HCO3 25.1 mmol/L (21.0-28.0); ABG OXYGEN SATURATION 94.9 % (95.0-99.0); ABG PCO2 40 mmHg (32-45)
[2019-09-03 06:46] LABS: BASOPHILS % (AUTO) 0.4 % (0.0-5.0); HEMATOCRIT 33.1 % (36-48); LYMPHOCYTES % (AUTO) 29.2 % (21.0-51.0); MEAN CORPUSCULAR HEMOGLOBIN 31.6 pg (27.0-33.0); MEAN CORPUSCULAR HGB CONC 35.1 g/dL (32.0-36.0); MEAN CORPUSCULAR VOLUME 90.1 fL (79-99); MONOCYTES % (AUTO) 8.5 % (3.0-13.0); NEUTROPHILS % (AUTO) 60.9 % (40.0-77.0); PLATELET COUNT (AUTO) 318 K/uL (130-400); RED BLOOD CELL COUNT(AUTO) 3.67 MIL/uL (4.00-5.50); RED CELL DISTRIBUTION WIDTH 12.8 % (11.0-15.5); WHITE BLOOD COUNT (AUTO) 7.3 K/uL (4.8-10.8)
[2019-09-03 07:10] LABS: CREATININE 0.7 mg/dL (0.5-1.5); MAGNESIUM 1.5 mg/dL (1.80-2.40)
[2019-09-03 08:39] LABS: HEMOGLOBIN A1C 10.7 % (4.0-6.0)
[2019-09-03] MEDS: PANTOPRAZOLE 40 MG/VIAL IVP SCH (08:48)
[2019-09-03] MEDS ORDERED: SULF1TAB42 PO (09:19)
[2019-09-03] MEDS ORDERED: ACET1TAB12 PO (09:19)
--- NOTE | 2019-09-03 09:55 | NUR ---
PATIENT ARRIVED FROM ER. PATIENT MOVED TO ICU BED AND CONNECTED TO MONITORS. ALL ALARMS SET AND ALARMS AUDIBLE. PATIENT EDUCATED ON ROOM, POLICIES AND PLAN OF CARE. NO QUESTIONS AT THIS TIME. ASSESSED PER CHARTING. BED LOCKED AND LOW. CALL LIGHT IN REACH. PER ER, SURGEON AWARE OF PATIENT AND STATED HE WOULD SEE HER TODAY.
[2019-09-03] MEDS: ENOXAPARIN SODIUM 40 MG/0.4 ML SYRINGE SQ SCH (09:56)
[2019-09-03] MEDS: LEVOFLOXACIN 500 MG/D5W 100 ML 100 ML IV SCH (09:56)
[2019-09-03] MEDS ORDERED: VANCOMYCIN PROTOCOL PER PHARMACY IV SCH (10:00)
[2019-09-03] MEDS ORDERED: SODIUM CHLORIDE 0.9% 500ML 500 ML IV ONE (10:41)
[2019-09-03] MEDS ORDERED: COMPOUND IV REFRIGERATED 1 EACH IVSOLN MISC PRN (11:15)
[2019-09-03] MEDS ORDERED: ACETAMINOPHEN-CODEINE 300/30MG TAB PO PRN (12:45)
[2019-09-03] MEDS: FAMOTIDINE/PF 20 MG/2 ML VIAL IV SCH (13:28)
--- NOTE | 2019-09-03 15:23 | NUR ---
cm note met with patient and spouse, pt lives with spouse, independent with adls and self care, no dme. dc plan is back to home at time of dc. no dc needs. Addendum: 09/03/19 at 1525 by MICHAEL MEHTA CM Amended: Links added.
[2019-09-03 15:26] LABS: MAGNESIUM 1.5 mg/dL (1.80-2.40); POTASSIUM 3.3 mmol/L (3.5-5.1)
[2019-09-03] MEDS: MAGNESIUM 2GM PREMIX IV PRN ×2 (15:34→17:04)
[2019-09-03] MEDS: POTASSIUM CHLORIDE 20 MEQ ERTAB PO PRN ×3 (15:34→17:03)
[2019-09-03] MEDS: INSULIN LISPRO 100 UNIT/ML 3ML SQ SCH ×2 (16:39→20:57)
--- NOTE | 2019-09-03 16:49 | NUR ---
REPORT CALLED TO RIZWAN Burnett RN ON 4TH FLOOR. ALL QUESTIONS ANSWERED, INFORMED THAT DR GREENBERG IS PENDING TO SEE PATIENT.
[2019-09-03] MEDS: ONDANSETRON HCL 4 MG/2 ML VIAL IVP PRN (17:07)
--- NOTE | 2019-09-03 17:13 | NUR ---
PATIENT TRANSFERRED TO [facility] VIA BED WITH 2 STAFF. PATIENT'S VERIFIED ALL BELONGINGS/MEDICATIONS ARE MOVING WITH PATIENT. PATIENT IN STABLE CONDITION. RIZWAN CALLED TO UPDATE AND NOTIFIY PATIENT IS MOVING AT THIS TIME. NO QUESTIONS.
[2019-09-03] MEDS: ALPRAZOLAM 0.5 MG TABLET PO PRN (17:47)
--- NOTE | 2019-09-03 18:30 | NUR ---
pt requesting xanax for her anxiety, prn dose given
[2019-09-03] MEDS: VANCOMYCIN 750MG + NS 250 ML IV SCH ×2 (21:02)
[2019-09-03] MEDS: MORPHINE SULFATE 2 MG/ML 1ML SYG IVP PRN (21:13)
[2019-09-04 00:06] VITALS: BP 135/84
[2019-09-04] MEDS: MORPHINE SULFATE 2 MG/ML 1ML SYG IVP PRN ×2 (03:59→08:25)
[2019-09-04] MEDS: ONDANSETRON HCL 4 MG/2 ML VIAL IVP PRN (03:59)
[2019-09-04 04:06] VITALS: BP 126/80
[2019-09-04 04:08] LABS: MEAN CORPUSCULAR HEMOGLOBIN 31.9 pg (27.0-33.0); MEAN CORPUSCULAR HGB CONC 35.4 g/dL (32.0-36.0); MEAN CORPUSCULAR VOLUME 90.1 fL (79-99); PLATELET COUNT (AUTO) 318 K/uL (130-400); RED BLOOD CELL COUNT(AUTO) 3.44 MIL/uL (4.00-5.50); RED CELL DISTRIBUTION WIDTH 12.6 % (11.0-15.5); WHITE BLOOD COUNT (AUTO) 6.3 K/uL (4.8-10.8)
[2019-09-04 04:16] LABS: CREATININE 0.5 mg/dL (0.5-1.5); MAGNESIUM 1.8 mg/dL (1.80-2.40); POTASSIUM 3.2 mmol/L (3.5-5.1)
[2019-09-04] MEDS: POTASSIUM CHLORIDE 20 MEQ ERTAB PO PRN ×3 (05:18→10:26)
[2019-09-04] MEDS: MAGNESIUM 2GM PREMIX IV PRN (05:22)
[2019-09-04] MEDS: INSULIN LISPRO 100 UNIT/ML 3ML SQ SCH ×2 (06:43→11:30)
[2019-09-04] MEDS ORDERED: LEVOTHYROXINE 112 MCG TABLET PO SCH (07:30)
[2019-09-04 07:46] VITALS: BP 127/79
--- NOTE | 2019-09-04 08:15 | NUR ---
DR. DIONICIO AVILES HERE TO SEE PATIENT. DR. GREENBERG REMOVED LEFT BREAST WOUND PACKING AT BEDSIDE. MD INSTRUCTED TO COVERED LEFT BREAST INCISION WITH BANDAGE. I ASKED MD IF HE WANTED WOUND CLEANSED AND MD REPLIED 'NO, ONLY A BANDAGE TO COVER." ALSO TOLD PATIENT SHE IS NOT TO PERFORM DRESSING CHANGES AT HOME AND INSTRUCTED PATIENT TO AVOID TOUCHING BREAST AND AVOID SEXUAL ACTIVITY. TOLD ME PATIENT COULD BE DISCHARGE FROM HIS STANDPOINT AND ASKED ME TO FOLLOW-UP WITH LAB ABOUT LEFT BREAST WOUND CULTURES. SPOKE TO ENRICO FROM LAB AND WAS TOLD LEFT BREAST WOUND CULTURES WERE OBTAINED ON 09/02/19 AND RESULTS STILL PENDING.
[2019-09-04] MEDS: LEVOFLOXACIN 500 MG/D5W 100 ML 100 ML IV SCH (08:27)
[2019-09-04] MEDS: FAMOTIDINE/PF 20 MG/2 ML VIAL IV SCH (08:32)
[2019-09-04] MEDS: ENOXAPARIN SODIUM 40 MG/0.4 ML SYRINGE SQ SCH (08:40)
[2019-09-04] MEDS: PANTOPRAZOLE 40 MG/VIAL IVP SCH (08:40)
[2019-09-04] MEDS: ALPRAZOLAM 0.5 MG TABLET PO PRN (10:24)
[2019-09-04] MEDS: VANCOMYCIN 750MG + NS 250 ML IV SCH ×2 (10:26)
[2019-09-04 11:09] VITALS: BP 138/79
[2019-09-04] MEDS ORDERED: INSULIN DEGLUDEC 24 UNIT SQ SCH (12:00)
== END 2019-09-04 16:35 | disposition home or self-care (01) | DRG 871 ==
LOC: EDH 14:25 → EDHIP 17:39 → INTOOBSV 17:39 → OBSVTOIN 17:39 → 2BH 09-03 09:39 → 4BH 09-03 16:43
PROVIDERS: ADMIT Internal Medicine; ATTEND Internal Medicine
DX: A41.9 Sepsis, unspecified organism (principal); E10.10 Type 1 diabetes mellitus with ketoacidosis without coma; N61.1 Abscess of the breast and nipple; E03.9 Hypothyroidism, unspecified; F17.200 Nicotine dependence, unspecified, uncomplicated; F31.9 Bipolar disorder, unspecified; F41.9 Anxiety disorder, unspecified; Z79.4 Long term (current) use of insulin; Z83.3 Family history of diabetes mellitus; Z88.0 Allergy status to penicillin
CPT/HCPCS: 36415; 36600; 71045; 80048; 80053; 80305; 81001; 81025; 82010; 82550; 82803; 82948; 83036; 83605; 83735; 83874; 84100; 84132; 84145; 84439; 84443; 84481; 84484; 85025; 85027; 85610; 85730; 87040; 87070; 87076; 87088; 93005; 99291; C9113; G0378; J1650; J1815; J1956; J2060; J2270; J2405; J3370; J3475; J3480; J3490; J7030; J7040; J7042; J7070; J7120

== ENCOUNTER 2020-10-25 23:34 | Emergency (ER) | payer OTHER, MEDICARE ==
[~2020-10-25 23:34] MED LIST changes: +ACET1TAB12 PO; -INSU100V12 SQ; +SULF1TAB42 PO
[2020-10-26] MEDS ORDERED: ONDANSETRON 4 MG TABLET ONE (00:02)
== END 2020-10-26 00:10 | disposition home or self-care (01) ==
LOC: EDH 23:34
DX: R11.0 Nausea (principal); F41.9 Anxiety disorder, unspecified; F32.9 Major depressive disorder, single episode, unspecified; E05.90 Thyrotoxicosis, unspecified without thyrotoxic crisis or storm; Z72.0 Tobacco use; Z88.0 Allergy status to penicillin; Z79.899 Other long term (current) drug therapy
CPT/HCPCS: 82948; 99283; Q0162

== ENCOUNTER 2022-05-26 09:33 | Emergency (ER) | payer OTHER, MEDICARE ==
[~2022-05-26] VITALS: Ht 149.9 cm; Wt 61.2 kg
[~2022-05-26 09:33] MED LIST changes: +ACET-2079 PO; -ACET1TAB12 PO; -ALPR0.5T PO; +ALPR1TAB2 PO; -CHOL500050 PO; +CLIN-141 PO; +LEVO112C4 PO; -LEVO112T7 PO; -SULF1TAB42 PO; +flagyl PO
[2022-05-26] MEDS ORDERED: LIDOCAINE/PRILOCAINE CREAM 5GM TUBE TP ONE (10:04)
[2022-05-26 10:05] LABS: BASOPHILS % (AUTO) 0.4 % (0.0-5.0); EOSINOPHILS % (AUTO) 1.4 % (0.0-8.0); LYMPHOCYTES % (AUTO) 14.1 % (21.0-51.0); MEAN CORPUSCULAR HEMOGLOBIN 30.6 pg (27.0-33.0); MEAN CORPUSCULAR VOLUME 90.1 fL (79-99); NEUTROPHILS % (AUTO) 79.8 % (40.0-77.0); PLATELET COUNT (AUTO) 475 K/uL (130-400); RED BLOOD CELL COUNT(AUTO) 4.77 MIL/uL (4.00-5.50); RED CELL DISTRIBUTION WIDTH 11.9 % (11.0-15.5); WHITE BLOOD COUNT (AUTO) 11.3 K/uL (4.8-10.8)
[2022-05-26 10:07] LABS: APPEARANCE,URINE Cloudy (CLEAR); BILIRUBIN,URINE Negative (NEGATIVE); COLOR,URINE Yellow (YELLOW); GLUCOSE, URINE (UA) >=1000 mg/dL (NEGATIVE); KETONES,URINE >=80 mg/dL (NEGATIVE); LEUKOCYTE ESTERASE ,URINE Negative (NEGATIVE); NITRATE,URINE Negative (NEGATIVE); OCCULT BLOOD,URINE Moderate (NEGATIVE); PROTEIN,URINE POS 2+ mg/dL (NEGATIVE)
[2022-05-26 10:19] LABS: CREATININE 0.8 mg/dL (0.5-1.5); POTASSIUM 3.9 mmol/L (3.5-5.1)
[2022-05-26 10:21] LABS: BACTERIA,URINE Few /HPF (None Seen)
[2022-05-26 10:23] LABS: ALBUMIN 3.5 g/dL (3.5-5.0); TOTAL PROTEIN, SERUM 7.7 g/dL (6.0-8.3)
[2022-05-26] MEDS ORDERED: SULFAMETHOX-TMP DS 800/160 TAB PO SCH (10:30)
[2022-05-26] MEDS ORDERED: MUPIROCIN OINTMENT 22 GM TUBE TP SCH (10:30)
[2022-05-26] MEDS ORDERED: LIDOCAINE/PRILOCAINE CREAM 30 GM TUBE TP SCH (10:30)
[2022-05-26] MEDS ORDERED: IBUPROFEN 600 MG TABLET PO ONE (10:30)
[2022-05-26] MEDS ORDERED: SULF1TAB42 PO (11:05)
[2022-05-26] MEDS ORDERED: IBUP-2070 PO (11:05)
[2022-05-26] MEDS ORDERED: MUPI22O TP (11:05)
[2022-05-26 12:49] VITALS: BP 140/93
== END 2022-05-26 12:43 | disposition home or self-care (01) ==
LOC: EDH 09:33
DX: L02.214 Cutaneous abscess of groin (principal); E10.65 Type 1 diabetes mellitus with hyperglycemia; F41.9 Anxiety disorder, unspecified; M79.7 Fibromyalgia; E03.9 Hypothyroidism, unspecified; F17.200 Nicotine dependence, unspecified, uncomplicated; Z79.899 Other long term (current) drug therapy; Z79.4 Long term (current) use of insulin; Z88.0 Allergy status to penicillin; Z98.890 Other specified postprocedural states
CPT/HCPCS: 99283; 10060; 80053; 85025; 81001; 81025; 36415; J3490

== ENCOUNTER 2022-11-22 12:17 | Emergency (ER) | payer OTHER, MEDICARE ==
[~2022-11-22] VITALS: Ht 149.9 cm; Wt 58.1 kg
[~2022-11-22 12:17] MED LIST changes: +IBUP-2070 PO; +MUPI22O TP; +SULF1TAB42 PO
[2022-11-22 12:19] VITALS: BP 158/100
[2022-11-22] MEDS ORDERED: KETOROLAC 30MG VIAL (30MG/ML) IM ONE (14:00)
[2022-11-22] MEDS ORDERED: ACET-2079 PO (14:36)
== END 2022-11-22 15:09 | disposition home or self-care (01) ==
LOC: EDH 12:17
DX: K08.89 Other specified disorders of teeth and supporting structures (principal); M79.7 Fibromyalgia; F41.9 Anxiety disorder, unspecified; F31.9 Bipolar disorder, unspecified; E10.9 Type 1 diabetes mellitus without complications; E03.9 Hypothyroidism, unspecified; Z88.0 Allergy status to penicillin; Z79.4 Long term (current) use of insulin
CPT/HCPCS: 99283; 96372; J1885

== ENCOUNTER 2022-12-20 21:13 | Emergency (ER) | payer OTHER, MEDICARE ==
[~2022-12-20] VITALS: Ht 149.9 cm; Wt 58.2 kg
[2022-12-20 21:20] VITALS: BP 121/64
[2022-12-20] MEDS ORDERED: IBUPROFEN 200 MG TAB PO ONE (21:30)
== END 2022-12-20 22:54 | disposition home or self-care (01) ==
LOC: EDH 21:13
DX: S62.316A Displaced fracture of base of fifth metacarpal bone, right hand, initial encounter for closed fracture (principal); F41.9 Anxiety disorder, unspecified; E11.9 Type 2 diabetes mellitus without complications; M79.7 Fibromyalgia; F32.A Depression, unspecified; F17.200 Nicotine dependence, unspecified, uncomplicated; Z88.0 Allergy status to penicillin; Z79.1 Long term (current) use of non-steroidal anti-inflammatories (NSAID); W22.8XXA Striking against or struck by other objects, initial encounter; Y93.89 Activity, other specified; Y92.89 Other specified places as the place of occurrence of the external cause; Y99.8 Other external cause status
CPT/HCPCS: 29105; 73130; 81025

== ENCOUNTER 2023-11-11 10:22 | Emergency (ER) | payer OTHER, MEDICARE ==
[~2023-11-11] VITALS: Ht 149.9 cm; Wt 65.8 kg
[2023-11-11 10:23] VITALS: BP 150/98; PULSE 88; RESP 18
[2023-11-11 11:45] LABS: BILIRUBIN,URINE NEGATIVE (NEGATIVE); COLOR,URINE LIGHT-YELLOW (YELLOW); GLUCOSE, URINE (UA) NEGATIVE (NEGATIVE); KETONES,URINE 5 mg/dL (NEGATIVE); LEUKOCYTE ESTERASE ,URINE NEGATIVE Leu/uL (NEGATIVE); NITRATE,URINE NEGATIVE (NEGATIVE); OCCULT BLOOD,URINE SMALL (NEGATIVE); PROTEIN,URINE 10 mg/dL (NEGATIVE); UROBILINOGEN,URINE 0.2 mg/dL (0.2-1.0)
[2023-11-11 11:47] LABS: ADD UA MICROSCOPIC YES; APPEARANCE,URINE HAZY (CLEAR); HCG,QUALITATIVE URINE NEGATIVE (NEGATIVE)
[2023-11-11 11:49] LABS: BACTERIA,URINE FEW /HPF (None Seen); SQUAMOUS EPITHELIAL CELL,UR MOD /HPF (0-2); WBC,URINE 0-1 /HPF (0-1)
[2023-11-11] MEDS ORDERED: SULF1TAB42 PO (13:15)
[2023-11-11] MEDS ORDERED: IBUP-2070 PO (13:17)
[2023-11-11] MEDS ORDERED: ACETAMINOPHEN WITH CODEINE 1 TAB TAB PO ONE (13:30)
== END 2023-11-11 13:45 | disposition home or self-care (01) ==
LOC: EDH 10:22
DX: L02.214 Cutaneous abscess of groin (principal); F41.9 Anxiety disorder, unspecified; F32.A Depression, unspecified; E10.9 Type 1 diabetes mellitus without complications; E03.9 Hypothyroidism, unspecified
CPT/HCPCS: 10060; 81001; 81025

== ENCOUNTER 2024-04-23 14:22 | Emergency (ER) | payer OTHER, MEDICARE ==
[~2024-04-23] VITALS: Ht 149.9 cm; Wt 65.8 kg
[2024-04-23] MEDS: HYDROCODONE/ACETAMINOPHEN 5/325 MG TAB PO STA (15:30)
[2024-04-23] MEDS: KETOROLAC 15MG/ML VIAL (15MG/ML) IM STA (15:30)
[2024-04-23] MEDS ORDERED: SULF1TAB42 PO (15:34)
[2024-04-23] MEDS ORDERED: AMOX1TAB16 PO (15:34)
[2024-04-23 15:36] VITALS: BP 142/88; PULSE 97; RESP 20; O2SAT 98
== END 2024-04-23 15:44 | disposition home or self-care (01) ==
LOC: EDH 14:22
DX: L02.214 Cutaneous abscess of groin (principal)
CPT/HCPCS: 99283; 10060; 96372; J1885

== ENCOUNTER 2025-06-21 13:15 | Emergency (ER) | payer OTHER, MEDICAID ==
[~2025-06-21] VITALS: Ht 149.9 cm; Wt 66.0 kg
[~2025-06-21 13:15] MED LIST changes: +IBUP-1492 PO; -IBUP-2070 PO; -LEVO112C4 PO; +LEVO112C5 PO
--- NOTE | 2025-06-21 13:25 | ERN ---
ED Note History of Present Illness Stated Complaint: ABDOMINAL PAIN Chief Complaint: Abdominal Pain Time Seen by MD: 13:19 Dictation: PATIENT IS A 34-YEAR-OLD FEMALE COMING IN TODAY WITH ABDOMINAL PAIN OVER HER APPENDIX AREA WITH NAUSEA VOMITING FOR THE LAST TWO DAYS. SHE STATES SHE HASG HAS A HISTORY CONSTIPATION IS SCHEDULED WITH /[facility] INSTRUCTION FACILITATOR FOR ENDOSCOPY AND COLONOSCOPY TOMORROW. SHE STATES SHE HAS HAD THIS PAIN FOR TWO DAYS HAS NOT BEEN TO SEE HER PRIMARY CARE DOCTOR. STATES SHE IS A DIABETIC AND SAID HER BLOOD SUGAR HAS BEEN RUNNING LOW. Allergies: Coded Allergies: Penicillins (Unverified Allergy, Mild, UNKNOWN, 04/17/15) PER HER MOTHER nitrofurantoin (Unverified Allergy, Unknown, 06/21/25) Home Meds Active Scripts Sulfamethoxazole/Trimethoprim (Bactrim Ds Tablet) 800 Mg-160 Mg Tablet, 1 TAB PO BID for 7 Days, #14 TAB 0 Refills Prov:CALVIN CASTILLO COIL TAPER 04/23/24 Ibuprofen (Ibuprofen) 600 Mg Tablet, 600 MG PO Q6H PRN for PAIN, #30 TAB Prov:ODALIS RUSSO V TYPING CHECKER 11/11/23 Sulfamethoxazole/Trimethoprim (Bactrim Ds Tablet) 800 Mg-160 Mg Tablet, 1 TAB PO BID for 7 Days, #14 TAB 0 Refills Prov:ODALIS RUSSO V TYPING CHECKER 11/11/23 Mupirocin (Bactroban 2% Oint) 1 Appl/Gm Oint, 1 APPL TP BID for 7 Days, #1 TUBE Prov:NADIA PEREZ MD 05/26/22 Sulfamethoxazole/Trimethoprim (Bactrim Ds Tablet) 1 Each Tablet, 1 TAB PO BID for 7 Days, #14 TAB 0 Refills Prov:NADIA PEREZ MD 05/26/22 Ibuprofen (Ibuprofen) 600 Mg Tablet, 600 MG PO Q6H PRN for PAIN, #30 TAB Prov:NADIA PEREZ MD 05/26/22 Acetaminophen with Codeine (Acetaminophen-Cod #3 Tablet) 1 Each Tablet, 1-2 EACH PO Q6HPRN PRN for Acute post-op pain, #40 TAB 0 Refills Prov:AVNI OBRIEN MD 07/02/21 Clindamycin HCl (Clindamycin HCl) 300 Mg Capsule, 300 MG PO Q8H for 2 Days, #6 CAP 0 Refills Prov:AVNI OBRIEN MD 07/02/21 Reported Medications [flagyl] No Conflict Check, 1 TAB PO BID 07/01/21 Levothyroxine Sodium (Levothyroxine) 112 Mcg Capsule, 112 MCG PO AM, CAP 07/01/21 Alprazolam (Xanax) 1 Mg Tablet, 1 MG PO AD PRN for anxiety, TAB 07/01/21 Insulin Degludec (Tresiba Flextouch U-100) 100 Unit/1 Ml Insuln.pen, 24 UNIT SQ DAILYLUNCH, SYRINGE 10/30/17 Insulin Lispro (Humalog) 100 Unit/1 Ml Insuln.pen, 1-4 UNIT SQ ACHS, SYRINGE 200 - 300 = 2 UNITS 301 - 400 = 3 UNITS GREATER THAN 400 = 4 UNITS 04/17/15 Past Medical History Past Medical History: Anxiety, Bipolar, Cancer, Diabetes-Type I, Hypertension Additional Past Medical Hx: FIBROMYALGIA, DEPRESSION, BIPOLAR Surgical History: Other Surgical History Other: ovarian sx Social History: Smokers, ETOH, Lives with family : 1 Para: 0 Aborts: 1 RN Note Reviewed/Agreed w/PFSH: Yes Review of System Dictation CONSTITUTIONAL: NEGATIVE EXCEPT FOR HPI HEAD/FACE: NEGATIVE EXCEPT FOR HPI EENT: NEGATIVE EXCEPT FOR HPI RESPIRATORY: NEGATIVE EXCEPT FOR HPI GASTROINTESTINAL/ABDOMINAL: NEGATIVE EXCEPT FOR HPI RIGHT LOWER QUADRANT PAIN WITH NAUSEA VOMITING GENITOURINARY: NEGATIVE EXCEPT FOR HPI MUSCULOSKELETAL: NEGATIVE EXCEPT FOR HPI INTEGUMENTARY: NEGATIVE EXCEPT FOR HPI NEUROLOGICAL/PSYCH: NEGATIVE EXCEPT FOR HPI HEMATOLOGIC/LYMPHATIC: NEGATIVE EXCEPT FOR HPI ALL SYSTEMS NEGATIVE, EXCEPT NOTED ABOVE. 13 POINT REVIEW OF SYSTEMS ASSESSED AND ALL NEGATIVE EXCEPT FOR ABOVE. Initial Vital Sign VS Vital Signs Date Time Temp Pulse Resp B/P (MAP) Pulse Ox O2 Delivery O2 Flow Rate FiO2 06/21/25 13:16 97.9 82 20 160/88 98 Room Air 0 06/21/25 13:22 21 Physical Exam Dictation VITAL SIGNS REVIEWED GENERAL APPEARANCE: ALERT, ORIENTED X 3, MODERATE ACUTE DISTRESS, WELL DEVELO PED, NOURISHED. HEAD AND FACE: NON-TRAUMATIC. EYES: PERRL, PINK CONJUNCTIVAS, EYELID NO TRAUMA, ANTERIOR CHAMBER WITH ARCUS SENILIS. EARS: PINNAS INTACT AND NO SIGNS OF TRAUMA OR ERYTHEMA EAR CANALS CLEAR AND NO DISCHARGE TM NO ERYTHEMA NOSE: NO DISCHARGE, NO BLEEDING. OROPHARYNX: MOUTH NORMAL, TONGUE PINK, PHARYNX CLEAR,NO ERYTHEMA, TONSILS NO EXUDATES, NO ABSCESSES NOTED, MUCOUS MEMBRANE MOIST NECK: SUPPLE, NON-TENDER, NO THYROMEGALY, NO MASSES, NO JVD, NO BRUITS BREAST:DEFERRED CHEST:NO TENDERNESS, NO CREPITUS, NO PARADOXICAL MOVEMENT, NO RETRACTIONS LUNGS:CLEAR, WELL-VENTILATED, SYMMETRIC, NO RALES, NO WHEEZING, NO RHONCHI, NO STRIDOR, GOOD BREATH SOUNDS BILATERALLY HEART: REGULAR RATE, REGULAR RHYTHM, NO MURMUR, NO GALLOPS VASCULAR: NO PERIPHERAL EDEMA, ABDOMEN: SOFT, POSITIVE BOWEL SOUNDS, RIGHT LOWER QUADRANT PAIN TENDERNESS OVER MCBURNEY'S SITE WITH MILD REBOUND TENDERNESS. RECTAL: DEFERRED GENITAL: DEFERRED NEUROLOGICAL: NORMAL SPEECH, MOTOR FUNCTION INTACT, SENSORY FUNCTION INTACT MUSCULOSKELETAL: NECK NONTENDER, FULL RANGE OF MOTION, BACK NONTENDER, FULL RANGE OF MOTION, EXTREMITIES: NONTENDER, FULL RANGE OF MOTION SKIN: COLOR PINK, DRY, NO TURGOR, NO RASH, NO LACERATIONS, NO ABRASIONS, NO CONTUSIONS. LYMPHATIC: DEFERRED Results (Laboratory/Radiology) Laboratory/Radiology Laboratory Tests Test 06/21/25 13:42 White Blood Count 7.5 K/uL (4.8-10.8) Red Blood Count 4.41 MIL/uL (4.00-5.50) Hemoglobin 13.5 g/dL (12.0-16.0) Hematocrit 40.1 % (36-48) Mean Corpuscular Volume 90.9 fL (79-99) Mean Corpuscular Hemoglobin 30.6 pg (27.0-33.0) Mean Corpuscular Hemoglobin Concent 33.7 g/dL (32.0-36.0) Red Cell Distribution Width 12.1 % (11.0-15.5) Platelet Count 469 K/uL (130-400) H Mean Platelet Volume 9.3 fL (7.5-10.5) Immature Granulocyte % (Auto) 0.4 % (0-1) Neutrophils (%) (Auto) 69.3 % (40.0-77.0) Lymphocytes (%) (Auto) 22.9 % (21.0-51.0) Monocytes (%) (Auto) 4.6 % (3.0-13.0) Eosinophils (%) (Auto) 2.3 % (0.0-8.0) Basophils (%) (Auto) 0.5 % (0.0-5.0) Neutrophils # (Auto) 5.2 K/uL (1.8-7.7) Lymphocytes # (Auto) 1.7 K/uL (1.0-4.8) Monocytes # (Auto) 0.3 K/uL (0.1-1.0) Eosinophils # (Auto) 0.17 K/uL (0.00-0.70) Basophils # (Auto) 0.04 K/uL (0.00-0.20) Absolute Immature Granulocyte (auto 0.03 K/uL (0-1) Nucleated Red Blood Cells 0.0 % (0.0-0.19) Urine Color LIGHT-YELLOW (YELLOW) Urine Appearance CLOUDY (CLEAR) H Urine pH 5.5 (5.0-8.0) Urine Specific [place] 1.005 (1.001-1.031) Urine Protein NEGATIVE mg/dL (NEGATIVE) Urine Glucose (UA) NEGATIVE mg/dL (NEGATIVE) Urine Ketones NEGATIVE mg/dL (NEGATIVE) Urine Occult Blood SMALL (NEGATIVE) H Urine Nitrate NEGATIVE (NEGATIVE) Urine Bilirubin NEGATIVE mg/dL (NEGATIVE) Urine Urobilinogen 0.2 mg/dL (0.2-1.0) Urine Leukocyte Esterase 75 Aruna/uL (NEGATIVE) H Urine RBC 2-5 /HPF (0-1) H Urine WBC 11-25 /HPF (0-1) H Urine Squamous Epithelial Cells MANY /HPF (0-2) Urine Amorphous Crystals (Auto) RARE /LPF (None Seen) Urine Bacteria RARE /HPF (None Seen) Urine HCG, Qualitative NEGATIVE (NEGATIVE) Sodium Level 136 mmol/L (136-145) Potassium Level 3.9 mmol/L (3.5-5.1) Chloride Level 100 mmol/L (101-111) L Carbon Dioxide Level 28 mmol/L (21-32) Blood Urea Nitrogen 9 mg/dL (7-18) Creatinine 0.9 mg/dL (0.5-1.0) Glomerular Filtration Rate Calc 86 mL/min (>90) Random Glucose 236 mg/dL (70-105) H Total Calcium 9.5 mg/dL (8.5-10.1) Lipase 26 U/L (16-77) CT ABDOMEN/PELVIS W/CONTRAST REASON: RIGHT LOWER QUADRANT PAIN WITH REBOUND TENDERNESS COMPARISON: None. FINDINGS: Lung bases are clear. There are no focal liver lesions. There are normal-appearing kidneys.. Spleen and pancreas appear unremarkable. The gallbladder appears normal as well. Bowel loops appear unremarkable. The appendix is not visualized. There is no evidence of perithecal fat stranding. There is no evidence of free fluid or intraperitoneal air. There are no focal fluid collections. Aorta and retroperitoneum appear normal as do pelvic soft tissue structures. There is mild early atherosclerotic change of the abdominal aorta and iliac vessels with calcified plaque. The anterior abdominal wall is intact. Osseous structures appear unremarkable. In the right adnexa there is a large cyst measuring 5.4 x 4.5 cm. The uterus is mildly deviating to the left. There is a left adnexal cyst measuring 4.0 cm. IMPRESSION: . There is bilateral adnexal cysts more pronounced on the right. I would recommend pelvic and transvaginal sonogram for further evaluation There is no acute process seen a CT of the abdomen and pelvis with intravenous contrast. CT was performed with one or more following dose reduction techniques: automated exposure control, adjustment of the mA and kv according to patient's size, or use of a iterative reconstruction technique. Labs Reviewed?: Yes ED Course ED Course Orders Procedure Category Date Status Time Cbc With Differential LAB 06/21/25 Complete 13:22 ,Urine Test LAB 06/21/25 Complete 13:22 Urinalysis Profile LAB 06/21/25 Complete 13:22 Ct Abdomen/Pelvis CT 06/21/25 Resulted W/Contrast 13:22 0.9%Nacl 1000ml (Ns PHA 06/21/25 Complete 1000ml) 13:30 Morphine 2mg Syg PHA 06/21/25 Complete (Morphine 2mg Syg) 13:30 Ondansetron 4mg Inj PHA 06/21/25 Complete (Zofran 4mg Inj) 13:30 Lipase LAB 06/21/25 Complete 13:22 Basic Metabolic Panel LAB 06/21/25 Complete 13:22 Culture Urine HENRIETTA 06/21/25 In Process 13:57 Iohexol (Omnipaque) PHA 06/21/25 Complete 14:07 Current Medications Medications (Trade) Dose Ordered Sig/Danie Route PRN Reason Start Time Stop Time Status Last Admin Dose Admin Iohexol (Omnipaque) 75 ml STK-MED ONCE IV 06/21/25 14:07 06/21/25 14:09 DC Morphine Sulfate (morPHINE 2MG SYG) 2 mg ONCE ONCE IVP 06/21/25 13:30 06/21/25 13:31 DC 06/21/25 14:15 Ondansetron HCl (zoFRAN 4MG INJ) 4 mg ONCE ONCE IVP 06/21/25 13:30 06/21/25 13:31 DC 06/21/25 14:15 Sodium Chloride 1,000 ml @ 0 mls/hr ONCE ONCE IV 06/21/25 13:30 06/21/25 13:31 DC 06/21/25 14:15 Vital Signs Date Time Temp Pulse Resp B/P (MAP) Pulse Ox O2 Delivery O2 Flow Rate FiO2 06/21/25 14:21 97.9 86 20 148/82 100 Room Air* 0 21 06/21/25 13:22 97.9 82 20 160/88 98 Room Air* 0 21 06/21/25 13:16 97.9 82 20 160/88 98 Room Air 0 1510/SPOKE WITH PATIENT AT LENGTH REGARDING CLINICAL FINDINGS INCLUDING CYST. SHE IS AWARE TO FOLLOW UP WITH HER REGIONAL EDUCATION MANAGER DOCTOR, DR. MIKKI AGUIRRE WE WILL BE DISCHARGED HOME. ALL QUESTIONS ANSWERED Medical Decision Making MDM MDM: DIFFERENTIAL DIAGNOSIS: APPENDICITIS/DIVERTICULITIS/HERNIA/UTI/ECTOPIC /ELECTROLYTE IMBALANCE/DEHYDRATION RATIONALE: TESTS CONSIDERED AND ORDERED SECONDARY TO SHARED DECISION MAKING INCLUDE: RADIOLOGY/LABS PREVIOUS OUTSIDE RECORDS REVIEWED: OLD ER VISITS. RISK OF COMPLICATION AND/OR MORBIDITY OR MORTALITY OF PATIENT MANAGEMENT: NONE MEDICATIONS-PER MEDICATION RECONCILIATION NEED FOR HOSPITALIZATION: PATIENT DOES NOT MEET CRITERIA FOR HOSPITALIZATION. NO NEED FOR EMERGENCY MAJOR/MINOR SURGERY: NO THERE ARE NO SOCIAL CONCERNS WITH THIS PATIENT. PRESCRIPTION DRUG MANAGEMENT IBUPROFEN PRESCRIPTIONS WILL INCLUDE SYMPTOMATIC CARE PATIENT'S PRIOR EXTERNAL MEDICAL RECORDS FROM OTHER ER VISITS WERE REVIEWED BY ME INDICATED. PRIOR TESTING AND RESULTS FROM PREVIOUS VISITS WERE REVIEWED. PRIOR TESTS WERE TAKEN INTO ACCOUNT WITH MEDICAL DECISION MAKING AND RESOURCE UTILIZATION, INDEPENDENT HISTORIAN/HISTORIANS WERE USED TO OBTAIN COMPLETE MEDICAL HISTORY. I INDEPENDENTLY INTERPRETED THE TEST THAT WERE PERFORMED, RESULTS WERE REVIEWED BY ME AND CONSIDERED FINDINGS ON RADIOLOGY IF ORDERED. MEDICAL MANAGEMENT AND EXAMINATION INTERPRETATION DISCUSSIONS WERE HAD BY ME WITH OTHER QUALIFIED HEALTHCARE PROFESSIONALS INDICATED FOR THE PATIENT'S CARE. DX & DISP Disposition: Discharge Departure Impression: Primary Impression: Ovarian cyst, bilateral Additional Impressions: Diabetes mellitus with hyperglycemia, Hypochloremia Condition: Stable Scripts Ibuprofen (Ibuprofen 800 mg Tab) 800 Mg Tab 800 MG PO Q8H PRN for fever or pain, #30 TAB 0 Refills Prov: PRASAD GIBSON NP 06/21/25 Additional Instructions: FOLLOW-UP WITH PRIMARY CARE PROVIDER IN 1 TO 2 DAYS. TAKE MEDICATIONS DIRECTED HERE IN THE EMERGENCY ROOM. OKAY TO CONTINUE HOME MEDICATIONS UNLESS OTHERWISE DISCUSSED DURING YOUR VISIT IN THE EMERGENCY ROOM TODAY. RETURN TO YOUR NEAREST EMERGENCY ROOM IF SYMPTOMS WORSEN OR IF THERE IS NO IMPROVEMENT. CALL 911 IF YOU NEED IMMEDIATE ASSISTANCE. TAKE TYLENOL OR MOTRIN [id number] NEEDED AND IF NO CONTRAINDICATIONS ARE PRESENT. INCREASE ORAL HYDRATION. A WOUND CULTURE OR URINE CULTURE WAS ORDERED HERE IN THE EMERGENCY ROOM DEPARTMENT PLEASE FOLLOW-UP WITH PRIMARY CARE PROVIDER AND ADVISE THEM TO GET REPEAT PORTS FROM OUR FACILITY. IF YOU HAD ANY SRIDHAR WRAP/SPLINTS THAT WERE APPLIED HERE, PLEASE DO NOT REMOVE THEM UNTIL YOU SEE YOUR PRIMARY CARE OR SPECIALTY. TAKE IBUPROFEN NEEDED FOR PAIN. FOLLOW UP WITH THE YOUR REGIONAL EDUCATION MANAGER DOCTOR IN THE NEXT 1-2 DAYS Referrals: KATHRYN HENDRICKSON MD (PCP) Time of Disposition: 15:15 I have reviewed the case, and I agree with, Diagnosis and Plan PRASAD GIBSON NP Jun 21, 2025 13:25
[2025-06-21 13:51] LABS: IMMATURE GRANULOCYTE ABSOLUTE 0.03 K/uL (0-1); NUCLEATED RED BLOOD CELLS 0.0 % (0.0-0.19); PLATELET COUNT (AUTO) 469 K/uL (130-400); RED BLOOD CELL COUNT(AUTO) 4.41 MIL/uL (4.00-5.50); RED CELL DISTRIBUTION WIDTH 12.1 % (11.0-15.5); WHITE BLOOD COUNT (AUTO) 7.5 K/uL (4.8-10.8)
[2025-06-21 13:53] LABS: APPEARANCE,URINE CLOUDY (CLEAR); GLUCOSE, URINE (UA) NEGATIVE (NEGATIVE); LEUKOCYTE ESTERASE ,URINE 75 Leu/uL (NEGATIVE); NITRATE,URINE NEGATIVE (NEGATIVE); OCCULT BLOOD,URINE SMALL (NEGATIVE)
[2025-06-21 13:57] LABS: ADD UA MICROSCOPIC YES; CREATININE 0.9 mg/dL (0.5-1.0); GLOMERULAR FILTR. RATE CALC 86.0 mL/min (>90); GLUCOSE,RANDOM 236.0 mg/dL (70-105); SODIUM SERUM 136.0 mmol/L (136-145); UREA NITROGEN, BLOOD 9.0 mg/dL (7-18)
[2025-06-21 13:58] LABS: HCG,QUALITATIVE URINE NEGATIVE (NEGATIVE)
[2025-06-21 14:00] LABS: SQUAMOUS EPITHELIAL CELL,UR MANY /HPF (0-2)
[2025-06-21] MEDS ORDERED: IOHEXOL-350 75 ML VIAL IV ONE (14:07)
[2025-06-21] MEDS: 0.9%NACL 1000ML 1,000 ML IV ONE (14:15)
--- NOTE | 2025-06-21 14:54 | HMCIMG ---
CT ABDOMEN/PELVIS W/CONTRAST REASON: RIGHT LOWER QUADRANT PAIN WITH REBOUND TENDERNESS COMPARISON: None. FINDINGS: Lung bases are clear. There are no focal liver lesions. There are normal-appearing kidneys.. Spleen and pancreas appear unremarkable. The gallbladder appears normal as well. Bowel loops appear unremarkable. The appendix is not visualized. There is no evidence of perithecal fat stranding. There is no evidence of free fluid or intraperitoneal air. There are no focal fluid collections. Aorta and retroperitoneum appear normal as do pelvic soft tissue structures. There is mild early atherosclerotic change of the abdominal aorta and iliac vessels with calcified plaque. The anterior abdominal wall is intact. Osseous structures appear unremarkable. In the right adnexa there is a large cyst measuring 5.4 x 4.5 cm. The uterus is mildly deviating to the left. There is a left adnexal cyst measuring 4.0 cm. IMPRESSION: . There is bilateral adnexal cysts more pronounced on the right. I would recommend pelvic and transvaginal sonogram for further evaluation There is no acute process seen a CT of the abdomen and pelvis with intravenous contrast. CT was performed with one or more following dose reduction techniques: automated exposure control, adjustment of the mA and kv according to patient's size, or use of a iterative reconstruction technique.
[2025-06-21] MEDS ORDERED: IBUP-2077 PO (15:17)
[2025-06-21 15:41] VITALS: BP 139/92; PULSE 77; RESP 20; TEMP 97.9; O2SAT 100
== END 2025-06-21 15:51 | disposition home or self-care (01) ==
LOC: EDH 13:15
DX: N83.201 Unspecified ovarian cyst, right side (principal); N83.202 Unspecified ovarian cyst, left side; E10.65 Type 1 diabetes mellitus with hyperglycemia; E87.8 Other disorders of electrolyte and fluid balance, not elsewhere classified; I10 Essential (primary) hypertension; F41.9 Anxiety disorder, unspecified; F31.9 Bipolar disorder, unspecified; F17.200 Nicotine dependence, unspecified, uncomplicated; F10.90 Alcohol use, unspecified, uncomplicated; Z88.0 Allergy status to penicillin; Z88.1 Allergy status to other antibiotic agents; Z79.899 Other long term (current) drug therapy; Z79.2 Long term (current) use of antibiotics
CPT/HCPCS: 99285; 74177; 96374; 96361; 96375; 80048; 83690; 85025; 87086 ×2; 87186; 81001; 81025; 36415; J2270; J7030; J2405; Q9967